=== PATIENT | female | born 1975 | race Caucasian/White ===

== ENCOUNTER 2017-02-16 09:25 | Emergency (ER) | payer MEDICAID, MEDICARE ==
[~2017-02-16] VITALS: Ht 162.6 cm; Wt 82.0 kg
[~2017-02-16 09:25] MED LIST: ASPI81TA82 PO; CARV3.12 PO; ENAL2.5 PO; LASI20TA PO; LORA0.5T PO; POTA-243 PO; PROT40TA PO
[2017-02-16 09:32] VITALS: BP 122/84; PULSE 85; RESP 16; TEMP 98.3; O2SAT 97
[2017-02-16] MEDS ORDERED: LORA1TAB12 PO (10:22)
[2017-02-16] MEDS ORDERED: POTA-163 PO (10:22)
[2017-02-16] MEDS ORDERED: CARV12.5 PO (10:22)
[2017-02-16] MEDS ORDERED: FAMO20TA2 PO (10:22)
[2017-02-16] MEDS ORDERED: FURO20TA PO (10:22)
[2017-02-16] MEDS ORDERED: AZIT250T3 PO (10:27)
[2017-02-16] MEDS ORDERED: ALBUAER3 INH (10:27)
--- NOTE | 2017-02-16 10:28 | PD ---
HPI Chief Complaint: Cold / Flu Symptoms Time Seen by Provider: 10:20 Travel History International Travel<30 days: No Contact w/Intl Traveler<30days: No Traveled to known affect area: No History of Present Illness HPI This is a 41-year-old female who has a history of idiopathic dilated cardiomyopathy who presents to the emergency department with 3 days of productive cough with green sputum, some shortness of breath, constant, moderate severity associated with rhinorrhea and sore throat. She had a low- grade temperature 99.5 at home. Children in her home are sick with similar symptoms. She denies any increasing leg swelling or orthopnea. PFSH Past Medical History Hx Anticoagulant Therapy: Yes Arthritis: Yes (RIGHT SHOULDER) Asthma: Yes Blood Disorders: No Anxiety: Yes Depression: No Heart Rhythm Problems: Yes (HX OF V-TACH) Cancer: No (MODERATE DYSPLASIA) Cardiomyopathy: Yes Cardiovascular Problems: Yes High Cholesterol: No Chemotherapy: No Chest Pain: No Congestive Heart Failure: Yes COPD: No Diminished Hearing: No Endocrine: No Gastrointestinal Disorders: Yes GERD: Yes Genitourinary: No Headaches: Yes Hiatal Hernia: No Hypertension: Yes Immune Disorder: No Implanted Vascular Access Dvce: Yes Musculoskeletal: Yes Neurologic: No Psychiatric: Yes Reproductive: No Respiratory: No Migraines: Yes Radiation Therapy: No Sleep Apnea: Yes Ulcer: No Influenza Vaccination: Yes ?: Not : 2 Para: 2 Past Surgical History Body Medical Devices: ICD 2011 Cardiac Surgery: Yes (PACEMAKER/AICD, ABLATION X2) Gynecologic Surgery: No Hysterectomy: Yes (CA UTERUS) Pacemaker: Yes Other Surgery: Yes (LEAP) Social History Alcohol Use: No Tobacco Use: No Substance Use: No Allergies-Medications (Allergen,Severity, Reaction): Coded Allergies: Apple (Verified Allergy, Severe, Anaphylaxis, 02/16/17) Carrot (Verified Allergy, Severe, Anaphylaxis, 02/16/17) Celery (Verified Allergy, Severe, Anaphylaxis, 02/16/17) Reported Meds & Prescriptions Reported Meds & Active Scripts Active Reported Lorazepam 1 Mg Tab 1 Mg PO Q6H PRN Famotidine 20 Mg Tab 20 Mg PO BID Potassium Chloride ER (Potassium Chloride) 20 Meq Tab 20 Meq PO DAILY Furosemide 20 Mg Tab 20 Mg PO DAILY Coreg (Carvedilol) 12.5 Mg Tab 12.5 Mg PO BID Review of Systems Except as stated in HPI: all other systems reviewed are Neg Physical Exam Narrative GENERAL:Well appearing, no acute distress SKIN: Focused skin assessment warm and dry. HEAD: Atraumatic. Normocephalic. EYES: Pupils equal and round. No injection or drainage. Rhinorrhea. ENT: Mild posterior pharyngeal erythema with no exudates. NECK: Trachea midline. CARDIOVASCULAR: Regular rate and rhythm. No murmur appreciated. RESPIRATORY: Clear to auscultation. Breath sounds equal bilaterally. GASTROINTESTINAL: Abdomen soft, non-tender, nondistended. MUSCULOSKELETAL: No obvious deformities. NEUROLOGICAL: Awake and alert. No obvious cranial nerve deficits. Moving all extremities. PSYCHIATRIC: Appropriate mood and affect; insight and judgment normal. Data Data Last Documented VS Vital Signs Date Time Temp Pulse Resp B/P Pulse Ox O2 Delivery O2 Flow Rate FiO2 02/16/17 09:32 98.3 85 16 122/84 97 MDM Medical Decision Making Medical Screen Exam Complete: Yes Emergency Medical Condition: Yes Interpretation(s) Afebrile, no tachycardia, normotensive Differential Diagnosis Bronchitis, pneumonia, congestive heart failure Narrative Course This is a 41-year-old female with a history of dilated cardiomyopathy who presents to the emergency department with increasing sputum production, rhinorrhea and subjective fevers and chills. I suspect patient has bronchitis. She has a reassuring physical exam and is not hypoxic so I don't think any diagnostic imaging is warranted. Given the patient has some comorbidities having it's reasonable to treat her with antibiotics and a bronchodilator. Patient will be discharged home and was instructed to follow-up with her primary care physician later in the week if she doesn't improve. Diagnosis Primary Impression: Bronchitis Patient Instructions: General Instructions Additional Instructions: If you develop severe chest pain, shortness of breath, sweating, lightheadedness , dizziness or difficulty breathing return to the emergency department immediately. Followup with your primary care physician in 2-3 days if your symptoms are not resolved. Med/Other Pt SpecificInfo: Prescription(s) given Scripts Azithromycin 250 Mg [id number] Mg PO DIRECTED #6 TAB Take 2 tabs (500 mg) on day 1 then 1 tab daily x 4 days. Prov:Savita Ocampo MD 02/16/17 Albuterol 8.5 GM Inh (Proair Hfa 8.5 GM Inh)90 Mcg/Act Aer2 Puff INH Q4-6H PRN ( SHORTNESS OF BREATH) #1 INHALER 108 mcg/actuation Prov:Savita Ocampo MD 02/16/17 Disposition: 01 DISCHARGE HOME Condition: Stable Savita Ocampo MD February 16, 2017 10:27
== END 2017-02-16 10:47 | disposition home or self-care (01) ==
LOC: PHED 09:25 → PHEFT 10:47
DX: J40 Bronchitis, not specified as acute or chronic (principal); I42.0 Dilated cardiomyopathy; M19.90 Unspecified osteoarthritis, unspecified site; J45.909 Unspecified asthma, uncomplicated; F41.9 Anxiety disorder, unspecified; I50.9 Heart failure, unspecified; K21.9 Gastro-esophageal reflux disease without esophagitis; I10 Essential (primary) hypertension; G47.30 Sleep apnea, unspecified
CPT/HCPCS: 99284